=== PATIENT | female | born 1980 | race African-American/Black ===

== ENCOUNTER 2017-04-10 10:39 | Emergency (ER) | payer OTHER ==
[~2017-04-10] VITALS: Ht 170.2 cm; Wt 93.0 kg
[~2017-04-10 10:39] MED LIST: CIPRO PO; FLOMAX0.4 MG PO; TYLOX 5/500 CAP1 CAP PO
[2017-04-10 11:29] LABS: URINE SOURCE CLEAN CATCH
[2017-04-10 11:35] LABS: URINE APPEARANCE CLEAR; URINE BILIRUBIN NEG (NEG); URINE BLOOD NEG (NEG); URINE COLOR YELLOW; URINE GLUCOSE NEG (NEG); URINE KETONE NEG (NEG); URINE LEUKOCYTE ESTERASE TRACE (NEG); URINE NITRATE NEG (NEG); URINE PROTEIN TRACE (NEG); URINE SPECIFIC GRAVITY 1.026 (1.003-1.035)
[2017-04-10 11:38] LABS: CULTURE INDICATED? YES; URBCS1 AUWI 0-2 /[HPF] (0-2); URINE BACTERIA AUWI 1+ (NEGATIVE); URINE SQUAMOUS EPITHELIAL CELL MOD /[HPF]
== END 2017-04-10 11:14 | disposition home or self-care (01) ==
LOC: CFTX 10:39 → CED 10:39 → CFTX 11:10
PROVIDERS: Physician Assistant
DX: R11.2 Nausea with vomiting, unspecified (principal); R19.7 Diarrhea, unspecified; F17.210 Nicotine dependence, cigarettes, uncomplicated
CPT/HCPCS: 81003; 84703; 87086; 99284

== ENCOUNTER 2017-05-01 21:55 | Emergency (ER) | payer OTHER ==
[~2017-05-01] VITALS: Ht 167.6 cm; Wt 89.8 kg
== END 2017-05-01 23:59 | disposition left against medical advice (07) ==
LOC: CED 21:55
DX: Z53.21 Procedure and treatment not carried out due to patient leaving prior to being seen by health care provider (principal)